=== PATIENT | female | born 1955 | race Hispanic/Latino ===

== ENCOUNTER → 2023-01-17 | Outpatient (CLI) | payer OTHER | END | disposition home or self-care (01) | LOC: RAH 12:35 | PROVIDERS: ATTEND Internal Medicine | DX: N63.41 Unspecified lump in right breast, subareolar (principal); N63.10 Unspecified lump in the right breast, unspecified quadrant | CPT/HCPCS: 76641 ==

== ENCOUNTER → 2023-01-23 | Outpatient (CLI) | payer OTHER ==
[2023-01-23 08:48] LABS: INR 1.01 (0.85-1.15); PROTHROMBIN TIME 11.7 SEC (9.6-11.6)
[2023-01-23 08:50] LABS: PARTIAL THROMBOPLASTIN TIME 30.8 SEC (26.3-35.5)
== END | disposition home or self-care (01) ==
LOC: RAH 08:02
PROVIDERS: ATTEND Internal Medicine
DX: C50.011 Malignant neoplasm of nipple and areola, right female breast (principal); N63.41 Unspecified lump in right breast, subareolar; Z79.01 Long term (current) use of anticoagulants; Z79.899 Other long term (current) drug therapy
CPT/HCPCS: 19083; 85610; 85730; 36415; 88305; A4215 ×2; A4648

== ENCOUNTER 2025-03-01 10:03 | Emergency (ER) | payer MEDICARE, OTHER ==
[~2025-03-01] VITALS: Ht 160 cm; Wt 74.8 kg
--- NOTE | 2025-03-01 10:22 | NUR ---
PATIENT IN ROOM
--- NOTE | 2025-03-01 10:51 | ERN ---
ED Note History of Present Illness Stated Complaint: RT ARM PAIN,SWELLING,REDNESS Chief Complaint: Arm Swelling/Redness Time Seen by MD: 10:07 Dictation: This is a 70-year-old female who presented to the emergency room with complaints of right arm redness and cellulitis symptoms. Apparently she saw her primary care physician Dr. Ley who informed her that she may need a ultrasound of the upper extremity to rule out DVT. All these symptoms have been going on for 2 days and she showed up in the emergency room wanting a DVT study done. No fever chills or rigors. She did tell me that she applied some cream to the right arm after which she developed the redness and patchy areas. She also applied Vicks to see if the inflammation would go down which made it worse. Temperature 98.3 pulse 79 respirations 20 blood pressure 133/60 with a pulse oximetry of 99% on room air Her chronic medical problems include breast cancer with right mastectomy. Allergies: Coded Allergies: Penicillins (Unverified Allergy, Unknown, 03/01/25) Home Meds Active Scripts Prednisone (Prednisone) 20 Mg Tablet, 1 TAB PO AD for 6 Days, #14 TAB 0 Refills TAKE 1 TAB BY MOUTH THREE TIMES PER DAY X3 DAYS, THEN TAKE 1 TAB BY MOUTH TWICE A DAY X2 DAYS, THEN TAKE 1 TAB BY MOUTH ONCE A DAY X1 DAY. Prov:RANDEE MCCARTNEY MD 03/01/25 Past Medical History Past Medical History: Cancer Additional Past Medical Hx: [place] Surgical History: Other Surgical History Other: RT MASTECTOMY Family History: Negative Social History: Negative History: Not Applicable RN Note Reviewed/Agreed w/PFSH: Yes Review of System Dictation Constitutional: Negative for fever,chills, and weight loss Eyes: Negative for injury, pain,redness, and discharge ENT: Negative for injury,pain or swelling Cardiovascular: Negative for chest pain, palpitations, and edema Respiratory: Negative for shortness of breath, cough, and wheezing, Abdomen/GI: Negative for abdominal pain, nausea, vomiting, diarrhea, and constipation Back: Negative for injury and pain : Negative for injury, bleeding and discharge MS/Extremity: Negative for injury and deformity positive for redness right arm swelling and pain Skin: Negative for rash, and discoloration Neuro: Negative for headache, weakness, numbness, tingling, and seizure Psych: Negative for suicide ideation, homicidal ideation, and hallucinations Initial Vital Sign VS Vital Signs Date Time Temp Pulse Resp B/P (MAP) Pulse Ox O2 Delivery O2 Flow Rate FiO2 03/01/25 10:05 98.2 79 20 133/60 99 Room Air 0 03/01/25 10:25 21 Physical Exam Dictation General: awake, alert, NAD Head/Face: Normocephalic, atraumatic Eyes: PERRL, EOMI, vision at baseline ENT: oral cavity clear, TMs clear, no signs of infection Neck: Trachea midline, supple, no nuchal rigidity Cardiovascular: RRR, normal S1/S2, No MRGs, no JVD Respiratory: CTAB, no respiratory distress, No rales or wheezes Abdomen: Soft, non-tender, non-distended, normal bowel sounds, no guarding or rebound. Skin: Warm, dry, normal turgor, no rash MS/Extremity: Pulses equal, no cyanosis, neurovascular intact, FROM per extremity on the forearm she had patchy redness thickened skin. No purulence Neuro: COAx4, GCS 15, strength 5/5, CN 2-12 intact, normal cerebellar exam, normal gait, Psych: Normal behavior, mood, and affect normal Extremities-trace edema without any palpable cords, Homans sign is negative Results (Laboratory/Radiology) Laboratory/Radiology Laboratory Tests Test 03/01/25 10:55 White Blood Count 7.3 K/uL (4.8-10.8) Red Blood Count 4.35 MIL/uL (4.00-5.50) Hemoglobin 12.6 g/dL (12.0-16.0) Hematocrit 38.8 % (36-48) Mean Corpuscular Volume 89.2 fL (79-99) Mean Corpuscular Hemoglobin 29.0 pg (27.0-33.0) Mean Corpuscular Hemoglobin Concent 32.5 g/dL (32.0-36.0) Red Cell Distribution Width 14.2 % (11.0-15.5) Platelet Count 267 K/uL (130-400) Mean Platelet Volume 9.8 fL (7.5-10.5) Nucleated Red Blood Cells 0.0 % (0.0-0.19) Sodium Level 135 mmol/L (136-145) L Potassium Level 4.8 mmol/L (3.5-5.1) Chloride Level 102 mmol/L (101-111) Carbon Dioxide Level 29 mmol/L (21-32) Blood Urea Nitrogen 7 mg/dL (7-18) Creatinine 0.6 mg/dL (0.5-1.0) Glomerular Filtration Rate Calc 95 mL/min (>90) Random Glucose 122 mg/dL (70-105) H Total Calcium 9.2 mg/dL (8.5-10.1) Labs Reviewed?: Yes Ultrasound Comment: REASON: swelling redness pain ORDERING PHYSICIAN: RANDEE MCCARTNEY MD PROCEDURE: VENOUS UNI - US VENOUS DOPPLER UNILATERAL EXAM: US for Deep Venous Thrombosis, right Upper Extremity. CLINICAL HISTORY: swelling redness pain TECHNIQUE: Real-time ultrasound scan of the veins of the right upper extremity with color Doppler flow, spectral waveform analysis and compression. COMPARISON: None provided. FINDINGS: VEINS: The internal jugular and subclavian veins demonstrate flow. The axillary, cephalic, basilic, and brachial veins are echolucent, compressible, and demonstrate normal color Doppler flow. SOFT TISSUES: No acute finding. IMPRESSION: 1. No acute findings in the right upper extremity veins or soft tissues. /[place] DICTATED BY: KVNG HUANG Jr., MD DATE: 03/01/251327 ELECTRONICALLY SIGNED BY: KVNG HUANG Jr., MD DATE: 03/01/251327 ED Course ED Course Orders Procedure Category Date Status Time Cbc Without LAB 03/01/25 Complete Differential 10:45 Basic Metabolic Panel LAB 03/01/25 Complete 10:45 Us Venous Doppler US 03/01/25 Resulted Unilateral 10:45 Methylprednisolone PHA 03/01/25 Complete Succ 40mg (Solu-Medro 13:00 Current Medications Medications (Trade) Dose Ordered Sig/Annabel Route PRN Reason Start Time Stop Time Status Last Admin Dose Admin Methylprednisolone Sodium Succinate (Solu-medROL 40MG) 40 mg ONCE ONCE IM 03/01/25 13:00 03/01/25 13:00 DC 03/01/25 12:48 Vital Signs Date Time Temp Pulse Resp B/P (MAP) Pulse Ox O2 Delivery O2 Flow Rate FiO2 03/01/25 12:51 98.4 87 15 152/92 100 Room Air* 0 21 03/01/25 10:25 98.4 98 20 154/92 100 Room Air* 0 21 03/01/25 10:05 98.2 79 20 133/60 99 Room Air 0 Medical Decision Making MDM Differential diagnosis--thrombophlebitis, DVT, cellulitis, lymphedema, musculoskeletal pain, compartment syndrome, allergic reaction This is a 70-year-old female who presented to the emergency room with complaints of right arm redness and cellulitis symptoms. Apparently she saw her primary care physician Dr. Ley who informed her that she may need a ultrasound of the upper extremity to rule out DVT. All these symptoms have been going on for 2 days and she showed up in the emergency room wanting a DVT study done. No fever chills or rigors. She did tell me that she applied some cream to the right arm after which she developed the redness and patchy areas. She also applied Vicks to see if the inflammation would go down which made it worse. Temperature 98.3 pulse 79 respirations 20 blood pressure 133/60 with a pulse oximetry of 99% on room air Her chronic medical problems include breast cancer with right mastectomy. 11:45 a.m. CBC with a normal limits BNP 7 is normal except for a sodium of 135. 1236 noon right upper extremity venous Doppler study did not show any DVT. I updated the patient and spouse that I suspect more of contact dermatitis rather than a thrombophlebitis and updated them on the venous Doppler study. Discharge to follow up with her primary care physician Rationale: Tests considered and ordered secondary to shared decision making include: Labs and ultrasound of the right upper extremity Previous outside records reviewed: Old ER visits. Risk of complication and/or morbidity or mortality of patient management: None Medications-Per medication reconciliation Need for hospitalization: Patient does not meet criteria for hospitalization. Need for emergency major/minor surgery: No There are no social concerns with this patient. Prescription drug management Prescriptions will include symptomatic care Patient's prior external medical records from other ER visits were reviewed by me as indicated. Prior testing and results from previous visits were reviewed. Prior tests were taken into account with medical decision making and resource utilization, independent historian/historians were used to obtain complete medical history. I independently interpreted the test that were performed, results were reviewed by me and considered findings on radiology if ordered. Medical management and examination interpretation discussions were had by me wi th other qualified healthcare professionals as indicated for the patient's care. Problem List Problem List: (1) Contact dermatitis (2) Rash due to allergy DX & DISP Disposition: Discharge Departure Impression: Primary Impression: Contact dermatitis Additional Impression: Rash due to allergy Condition: Stable Scripts Prednisone (Prednisone) 20 Mg Tablet 1 TAB PO AD for 6 Days, #14 TAB 0 Refills TAKE 1 TAB BY MOUTH THREE TIMES PER DAY X3 DAYS, THEN TAKE 1 TAB BY MOUTH TWICE A DAY X2 DAYS, THEN TAKE 1 TAB BY MOUTH ONCE A DAY X1 DAY. Prov: RANDEE MCCARTNEY MD 03/01/25 Additional Instructions: Patient and the caregiver have been informed of all the diagnostic tests and the imaging conducted during the today's visit to the emergency room and has verbalized understanding of the results I have personally reviewed and interpreted all diagnostic exams performed here in the ER today as well as the vital signs documented by the nursing staff. The patient is now being discharged to home and should follow up with the primary care physician or the specialist as directed by the ER staff. 1 schedule a follow-up appointment; call your primary care physician's office on the next business day to set up a follow-up appointment. 2. Monitor symptoms; if your symptoms worsen return to the emergency room immediately. 3. Return to school/work; you may return to work or school in 2 days or as directed by your primary care physician. 4. Manage pain and fever; take [id number] Tylenol or Advil for pain or fever if there are no contraindications follow the recommended dosage instructions. 5. Stay well hydrated; drink plenty of oral fluids to stay hydrated. 6. Take prescribed medications; take any medications prescribed in the emergency room as directed bring them with you to your primary care physician visit for possible adjustments. 7. Complete medication course; finish the entire course of medication as prescribed even if you start feeling better. Do not have any leftover medication unless instructed otherwise. 8. Follow up on culture results; if a urine culture and wound culture was ordered in the emergency room please follow-up with your primary care physician within 2-3 days to review the culture and sensitivity report for appropriate antibiotic therapy adjustments. 9. Resume home medications; you may resume taking your home medications unless instructed otherwise. Referrals: YVONNE LEY MD (PCP) RANDEE MCCARTNEY MD Mar 01, 2025 10:51
[2025-03-01 11:08] LABS: NUCLEATED RED BLOOD CELLS 0.0 % (0.0-0.19); PLATELET COUNT (AUTO) 267.0 K/uL (130-400); RED BLOOD CELL COUNT(AUTO) 4.35 MIL/uL (4.00-5.50); RED CELL DISTRIBUTION WIDTH 14.2 % (11.0-15.5); WHITE BLOOD COUNT (AUTO) 7.3 K/uL (4.8-10.8)
[2025-03-01 11:11] LABS: CREATININE 0.6 mg/dL (0.5-1.0); GLOMERULAR FILTR. RATE CALC 95.0 mL/min (>90); GLUCOSE,RANDOM 122.0 mg/dL (70-105); SODIUM SERUM 135.0 mmol/L (136-145); UREA NITROGEN, BLOOD 7.0 mg/dL (7-18)
--- NOTE | 2025-03-01 12:29 | HMCIMG ---
EXAM: US for Deep Venous Thrombosis, right Upper Extremity. CLINICAL HISTORY: swelling redness pain TECHNIQUE: Real-time ultrasound scan of the veins of the right upper extremity with color Doppler flow, spectral waveform analysis and compression. COMPARISON: None provided. FINDINGS: VEINS: The internal jugular and subclavian veins demonstrate flow. The axillary, cephalic, basilic, and brachial veins are echolucent, compressible, and demonstrate normal color Doppler flow. SOFT TISSUES: No acute finding. IMPRESSION: 1. No acute findings in the right upper extremity veins or soft tissues. /[place]
[2025-03-01] MEDS ORDERED: PRED20TA3 PO (12:41)
[2025-03-01] MEDS: Solu-medROL 40MG VIAL IM ONE (12:48)
[2025-03-01 12:51] VITALS: BP 152/92; PULSE 87; RESP 15; TEMP 98.4; O2SAT 100
== END 2025-03-01 13:00 | disposition home or self-care (01) ==
LOC: EDH 10:03
DX: L23.3 Allergic contact dermatitis due to drugs in contact with skin (principal); T41.3X5A Adverse effect of local anesthetics, initial encounter; M79.601 Pain in right arm; R22.31 Localized swelling, mass and lump, right upper limb; Z88.0 Allergy status to penicillin; Z90.11 Acquired absence of right breast and nipple; Z85.3 Personal history of malignant neoplasm of breast; Y92.89 Other specified places as the place of occurrence of the external cause
CPT/HCPCS: 99285; 93971; 80048; 85027; 36415; 96372; J2919